=== PATIENT | male | born 1955 | race Asian ===

== ENCOUNTER 2018-10-31 18:06 | Emergency (ER) | payer MEDICAID ==
[~2018-10-31] VITALS: Ht 177.8 cm; Wt 68.0 kg
[~2018-10-31 18:06] MED LIST: DUONEB3 ML NEB; GUAIFENESIN AN118 ML PO; LAC PO; LEVAQUIN750 MG PO; MEDDP PO; OMEPRAZOLE DR20 M1 PO; PREDNISONE20 MG PO; PROAIR HFA0.09 MG/A1 IH; ZOCOR10 MG PO
[2018-10-31 18:32] VITALS: Ht 177.8 cm; Wt 68.0 kg
[2018-10-31 19:17] LABS: BASOPHIL % 1.4 % (0-2); PLATELET COUNT 296 x10^3mcL (130-400); RED CELL DISTRIBUTION WIDTH 12.9 % (11.5-14.5)
[2018-10-31 19:40] LABS: CALCIUM 9.1 mg/dL (8.5-10.1); CARBON DIOXIDE 31.7 mmol/L (21-32); CHLORIDE SERUM 98 mmol/L (98-107); GFR1 > 60 mL/min; GLUCOSE SERUM 95 mg/dL (74-106); POTASSIUM SERUM 3.3 mmol/L (3.5-5.1); SODIUM SERUM 135 mmol/L (136-145)
[2018-10-31 19:51] LABS: ALBUMIN 3.6 g/dL (3.4-5.0); ALKALINE PHOSPHATASE 54 U/L (46-116); ALT/SGPT 56 U/L (16-63); AMYLASE 54 U/L (25-115); AST/SGOT 26 U/L (15-37); BILIRUBIN TOTAL 0.27 mg/dL (0.20-1.00); CHOLESTEROL 187 mg/dL (<200); LIPASE 99 IU/L (73-393); T4(THYROXINE) 7.9 ug/dL (4.7-13.3)
[2018-10-31 19:52] LABS: HDL CHOLESTEROL 74 mg/dL (40-60)
[2018-10-31 21:20] VITALS: BP 155/92
== END 2018-10-31 21:58 | disposition home or self-care (01) ==
LOC: ED 18:06
PROVIDERS: Emergency Medicine
DX: J44.1 Chronic obstructive pulmonary disease with (acute) exacerbation (principal); J98.01 Acute bronchospasm; I10 Essential (primary) hypertension; E78.00 Pure hypercholesterolemia, unspecified; Z87.891 Personal history of nicotine dependence
CPT/HCPCS: 36600; 83880; 94150; J2930; J3475; J7030; J7613; J7644; Q0092